=== PATIENT | male | born 1945 | race African-American/Black ===

== ENCOUNTER 2017-09-29 08:00 | Emergency (ER) | payer MEDICARE ==
--- NOTE | 2017-09-29 09:08 | RAD ---
CHEST 2 VIEWS: Date: 09/29/17 HISTORY: Cough. COMPARISON: Chest 1 view dated 07/27/15. FINDINGS: Heart size is enlarged. Mild pulmonary venous congestion and early edema. No pneumothorax. No large e ffusion. IMPRESSION: Cardiomegaly with new edema and pulmonary venous congestion. POS: [facility]
== END 2017-09-29 08:45 | disposition home or self-care (01) ==
LOC: MADERS 08:00
DX: M62.838 Other muscle spasm (principal); I50.9 Heart failure, unspecified; Z79.899 Other long term (current) drug therapy
CPT/HCPCS: 71046

== ENCOUNTER 2018-05-14 02:21 | Emergency (ER) | payer MEDICARE ==
[2018-05-14 03:50] LABS: ALT (SGPT) 15 U/L (8-55); AST (SGOT) 23 U/L (5-34); Alkaline Phosphatase 102 U/L (40-150); Anion Gap 16 mmol/L (10-20); BUN (Urea Nitrogen) 26 mg/dL (8.4-25.7); Bilirubin, Total 1.5 mg/dL (0.2-1.2); Calc. Creatinine Clearance 0 mL/min (70-130); Calcium 9.5 mg/dL (7.8-10.44); Carbon Dioxide 34 mmol/L (23-31); Chloride 93 mmol/L (98-107); Estimated GFR-MDRD 46; Glucose 99 mg/dL (83-110); Protein, Total 7.7 g/dL (5.8-8.1); Sodium 140 mmol/L (136-145)
[2018-05-14 04:02] LABS: Hemoglobin 12.7 g/dL (14.0-18.0); Mean Corpuscular HGB CONC 31.9 g/dL (32.0-36.0); Mean Corpuscular Hemoglobin 24.9 pg (27.0-31.0); Mean Corpuscular Volume 78.3 fL (78.0-98.0); Mean Platelet Volume 9.1 fL (7.4-10.4); Platelet Count 184 thou/uL (130-400); RBC Distribution Width 14.6 % (11.5-14.5); White Blood Cell (WBC) Count 6.4 thou/uL (4.8-10.8)
[2018-05-14 04:03] LABS: Potassium 2.6 mmol/L (3.5-5.1)
[2018-05-14 04:04] LABS: Band 12 % (5-11); Lymphocytes 37 % (21-51); Monocytes 2 % (0-10)
[2018-05-14 04:16] LABS: Albumin 4.1 g/dL (3.4-4.8); Globulin 3.6 g/dL (2.4-3.5)
[2018-05-14] MEDS ORDERED: Furosemide 40 MG/4 ML VIAL ONE (04:27)
[2018-05-14] MEDS ORDERED: Nitroglycerin 0.4 MG TAB (25 Tab Bottle) ONE (04:27)
[2018-05-14] MEDS ORDERED: Furosemide 20 MG/2 ML VIAL ONE (04:27)
[2018-05-14] MEDS ORDERED: Potassium Chloride 20 MEQ TAB ONE (04:27)
[2018-05-14] MEDS ORDERED: Nitroglycerin 2% Ointment 1 INCH/1 GM Packet ONE (04:27)
--- NOTE | 2018-05-14 08:19 | RAD ---
PORTABLE CHEST ONE VIEW: 05/14/2018 2:36 a.m. HISTORY: Dyspnea. FINDINGS: The heart is enlarged. The lungs are expanded with pulmonary vascular congestion. No pneumothoraces , lobar consolidation, or large effusions are identified. Small effusions cannot be excluded. POS: [facility]
== END 2018-05-14 04:50 | disposition short-term general hospital (02) ==
LOC: MADERS 02:21
DX: I11.0 Hypertensive heart disease with heart failure (principal); I50.9 Heart failure, unspecified; K21.9 Gastro-esophageal reflux disease without esophagitis; Z79.899 Other long term (current) drug therapy
CPT/HCPCS: 36415; 71045; 80053; 83880; 84484; 85025; 93005; 96374; J1940

== ENCOUNTER 2018-07-28 09:06 | Emergency (ER) | payer MEDICARE ==
[2018-07-28] MEDS ORDERED: Ibuprofen 600 MG TAB ONE (09:43)
[2018-07-28] MEDS ORDERED: predniSONE 20 MG TAB ONE (09:43)
[2018-07-28] MEDS ORDERED: Ondansetron ODT 4 MG TAB ONE (11:36)
== END 2018-07-28 09:50 | disposition home or self-care (01) ==
LOC: MADERS 09:06
DX: M10.9 Gout, unspecified (principal); K21.9 Gastro-esophageal reflux disease without esophagitis; I10 Essential (primary) hypertension; E78.5 Hyperlipidemia, unspecified; Z79.899 Other long term (current) drug therapy; Z79.82 Long term (current) use of aspirin
CPT/HCPCS: J7506; Q0162

== ENCOUNTER 2019-02-08 16:20 | Emergency (ER) | payer MEDICARE ==
[~2019-02-08 16:20] MED LIST: Sterile Water Irrigation 250 ML BOT ONE
== END 2019-02-08 17:49 | disposition home or self-care (01) ==
LOC: MADERS 16:20
DX: H61.22 Impacted cerumen, left ear (principal); I11.0 Hypertensive heart disease with heart failure; I50.9 Heart failure, unspecified; K21.9 Gastro-esophageal reflux disease without esophagitis; Z79.899 Other long term (current) drug therapy
CPT/HCPCS: 69210

== ENCOUNTER 2019-09-21 16:35 | Emergency (ER) | payer MEDICARE ==
[2019-09-21] MEDS ORDERED: predniSONE 20 MG TAB ONE (17:54)
[2019-09-21] MEDS ORDERED: Morphine 4 MG/ML VIAL ONE (17:54)
== END 2019-09-21 18:10 | disposition home or self-care (01) ==
LOC: MADERS 16:35
DX: M25.532 Pain in left wrist (principal); I11.0 Hypertensive heart disease with heart failure; I50.9 Heart failure, unspecified; E78.5 Hyperlipidemia, unspecified; M10.9 Gout, unspecified; J44.9 Chronic obstructive pulmonary disease, unspecified; K21.9 Gastro-esophageal reflux disease without esophagitis
CPT/HCPCS: 96372; 99283; J2270; J7512

== ENCOUNTER 2019-10-16 06:34 | Emergency (ER) | payer MEDICARE ==
[2019-10-16 07:55] LABS: Anisocytosis SLIGHT = 6-15 cells (100X) (0-5/hpf); Band 1 % (5-11); Elliptocytes SLIGHT = 2-5 cells (100X) (0-1/hpf); Eosinophils 2 % (0-10); Hemoglobin 12.8 g/dL (14.0-18.0); Lymphocytes 13 % (21-51); MDiff Complete? YES; Mean Corpuscular HGB CONC 29.2 g/dL (32.0-36.0); Mean Corpuscular Hemoglobin 25.2 pg (27.0-31.0); Mean Corpuscular Volume 86.3 fL (78.0-98.0); Mean Platelet Volume 8.5 fL (7.4-10.4); Monocytes 6 % (0-10); Neutrophil 78 % (42-75); Platelet Count 273 thou/uL (130-400); Poikilocytosis SLIGHT = 6-15 cells (100X) (0-5/hpf); RBC Distribution Width 15.6 % (11.5-14.5); Red Blood Cell (RBC) Count 5.07 mill/uL (4.70-6.10); White Blood Cell (WBC) Count 8.9 thou/uL (4.8-10.8)
[2019-10-16 07:56] LABS: ALT (SGPT) 27 U/L (8-55); AST (SGOT) 26 U/L (5-34); Albumin 3.8 g/dL (3.4-4.8); Alkaline Phosphatase 144 U/L (40-110); Anion Gap 20 mmol/L (10-20); BUN (Urea Nitrogen) 55 mg/dL (8.4-25.7); Bilirubin, Total 1.4 mg/dL (0.2-1.2); Calc. Creatinine Clearance 0 mL/min (70-130); Calcium 9.4 mg/dL (7.8-10.44); Carbon Dioxide 27 mmol/L (23-31); Chloride 101 mmol/L (98-107); Estimated GFR-MDRD 24; Globulin 3.4 g/dL (2.4-3.5); Glucose 91 mg/dL (83-110); Lipase 7 U/L (8-78); Potassium 3.8 mmol/L (3.5-5.1); Protein, Total 7.2 g/dL (5.8-8.1); Sodium 144 mmol/L (136-145)
[2019-10-16] MEDS ORDERED: Pantoprazole 40 MG VIAL ONE (08:03)
[2019-10-16] MEDS ORDERED: Nitroglycerin 2% Ointment 1 INCH/1 GM Packet ONE (08:03)
[2019-10-16] MEDS ORDERED: Aspirin 325 MG TAB ONE (08:03)
[2019-10-16 08:04] LABS: Bilirubin Small (Negative); Blood, Urine Negative (Negative); Clarity Clear (Clear); Glucose, Urine (Dipstick) Negative (Negative); Leukocyte Negative (Negative); Nitrite Negative (Negative); Protein, Urine (Dipstick) 100 mg/dL (Neg-Trace); Urobilinogen 0.2 mg/dL (Less than 2)
[2019-10-16 08:09] LABS: Bacteria/HPF Rare-Few HPF (None Seen); Mucous/LPF 1+ LPF (<2+); RBC/HPF 0-3 HPF (0-3); Squamous Epithelial 0-3 HPF (0-3); WBC/HPF 0-3 HPF (0-3)
[2019-10-16 08:13] LABS: CKMB 5.7 ng/mL (0-6.6)
--- NOTE | 2019-10-16 08:43 | CT ---
CT Abdomen Pelvis WO Con: 10/16/2019 7:59 AM HISTORY: Abdominal pain COMPARISON: None. TECHNIQUE: Multiple contiguous axial images were obtained and a CT of the abdomen and pelvis without IV contrast . Coronal and sagittal reformats were performed. FINDINGS: This examination is limited for the evaluation of solid organs and vascular structures due to the lac k of intravenous contrast. Lower Chest: Small right pleural effusion. Abdomen: Liver: Scattered calcified granulomas. Bile Ducts: Normal caliber. Gallbladder: No calcified gallstones. Fluid is seen surrounding the gallbladder and adjacent to the l iver. Pancreas: within normal limits. Spleen: Scattered calcified granulomas. Adrenals: within normal limits. Kidneys: within normal limits. Pelvis: Reproductive Organs: No pelvic masses. Ureters: within normal limits. Bladder: within normal limits. Bowel: Normal caliber. Mesenteric Lymph Nodes: No enlarged mesenteric lymph nodes. Peritoneum: No ascites or free air, no fluid collection. Vessels: Atherosclerotic calcifications in the aorta Retroperitoneum: within normal limits. Abdominal Wall: Fluid is seen in the right inguinal canal. Bones: Degenerative changes in the spine. IMPRESSION: 1. Small ascites 2. Small amount of fluid surrounding the gallbladder may be secondary to the ascites. Acute cholecyst itis cannot be excluded. Right upper quadrant abdominal ultrasound is recommended. 3. Small right pleural effusion
== END 2019-10-16 09:27 | disposition left against medical advice (07) ==
LOC: MADERS 06:34
DX: K81.9 Cholecystitis, unspecified (principal); I11.0 Hypertensive heart disease with heart failure; I50.9 Heart failure, unspecified; R79.89 Other specified abnormal findings of blood chemistry; I48.91 Unspecified atrial fibrillation; I45.9 Conduction disorder, unspecified; E78.5 Hyperlipidemia, unspecified; J44.9 Chronic obstructive pulmonary disease, unspecified; K21.9 Gastro-esophageal reflux disease without esophagitis; M10.9 Gout, unspecified; Z79.82 Long term (current) use of aspirin; Z79.01 Long term (current) use of anticoagulants; Z79.899 Other long term (current) drug therapy
CPT/HCPCS: 36415; 74176; 80053; 81003; 81015; 82553; 83605; 83690; 84484; 85025; 93005; 96374; C9113

== ENCOUNTER 2020-07-18 18:07 | Emergency (ER) | payer MEDICARE ==
[2020-07-18 19:22] LABS: Bilirubin Negative (Negative); Blood, Urine Moderate (Negative); Clarity Clear (Clear); Glucose, Urine (Dipstick) Negative (Negative); Ketone, Urine Negative (Negative); Leukocyte Negative (Negative); Nitrite Negative (Negative); Protein, Urine (Dipstick) 30 mg/dL (Neg-Trace)
[2020-07-18 19:22] LABS: #Basophils 0.2 thou/uL (0.0-0.2); #Eosinphils 0.1 thou/uL (0.0-0.7); #Lymphocytes 1.1 thou/uL (1.20-3.40); #Monocytes 0.7 thou/uL (0.11-0.59); #Neutrophils 5.9 thou/uL (1.40-6.50); %Basophils 2.9 % (0.0-1.0); %Eosinophils 1.1 % (0.0-10.0); %Lymphocytes 13.2 % (21.0-51.0); %Monocytes 8.6 % (0.0-10.0); %Neutrophils 74.2 % (42.0-75.0); Hemoglobin 12.4 g/dL (14.0-18.0); Mean Corpuscular HGB CONC 30.8 g/dL (32.0-36.0); Mean Corpuscular Hemoglobin 26.4 pg (27.0-31.0); Mean Corpuscular Volume 85.9 fL (78.0-98.0); Mean Platelet Volume 9.4 fL (7.4-10.4); Platelet Count 140 thou/uL (130-400); RBC Distribution Width 16.7 % (11.5-14.5); Red Blood Cell (RBC) Count 4.68 mill/uL (4.70-6.10)
[2020-07-18 19:28] LABS: Bacteria/HPF Rare-Few HPF (None Seen); RBC/HPF 0-3 HPF (0-3); Squamous Epithelial 0-3 HPF (0-3); WBC/HPF 0-3 HPF (0-3)
[2020-07-18 19:40] LABS: ALT (SGPT) 16 U/L (8-55); AST (SGOT) 54 U/L (5-34); Albumin 3.5 g/dL (3.4-4.8); Alkaline Phosphatase 86 U/L (40-110); Anion Gap 16 mmol/L (10-20); BUN (Urea Nitrogen) 42 mg/dL (8.4-25.7); Calc. Creatinine Clearance 0 mL/min (70-130); Carbon Dioxide 36 mmol/L (23-31); Chloride 99 mmol/L (98-107); Estimated GFR-MDRD 38; Glucose 112 mg/dL (83-110); Protein, Total 6.5 g/dL (5.8-8.1); Sodium 147 mmol/L (136-145)
[2020-07-18 19:58] LABS: CKMB 5.9 ng/mL (0-6.6)
--- NOTE | 2020-07-18 20:00 | RAD ---
AP CHEST: 07/18/20 HISTORY: Dizziness. COMPARISON: 05/16/18. Cardiomegaly. Transvenous pacemaker leads have been placed since the prior exam. No evidence of vascu lar congestion or infiltrate. I cannot exclude small effusions. IMPRESSION: Cardiomegaly. No evidence of focal infiltrate. Small effusions not excluded. POS: [facility]
[2020-07-18] MEDS ORDERED: Aspirin Chewable 81 MG TAB ONE (20:11)
--- NOTE | 2020-07-18 20:42 | CT ---
CT HEAD WITHOUT CONTRAST: 07/18/20 INDICATIONS: Fall with dizziness. No comparison. FINDINGS: Ventricles have normal size and position. Moderate chronic ischemic white matter changes. No evidenc e of intracranial hemorrhage. No mass or edema. No evidence of acute infarct. Sinuses appear clear. IMPRESSION: No acute abnormality. POS: [facility]
[2020-07-18] MEDS ORDERED: Furosemide 40 MG TAB ONE (21:12)
[2020-07-18] MEDS ORDERED: Nitroglycerin 0.4 MG TAB 1 EACH ONE (21:12)
== END 2020-07-18 21:48 | disposition home or self-care (01) ==
LOC: MADERS 18:07
DX: R55 Syncope and collapse (principal); I11.0 Hypertensive heart disease with heart failure; I50.9 Heart failure, unspecified; I48.91 Unspecified atrial fibrillation; K21.9 Gastro-esophageal reflux disease without esophagitis; E78.5 Hyperlipidemia, unspecified; M10.9 Gout, unspecified; J44.9 Chronic obstructive pulmonary disease, unspecified; Z79.82 Long term (current) use of aspirin; Z79.899 Other long term (current) drug therapy; Z86.73 Personal history of transient ischemic attack (TIA), and cerebral infarction without residual deficits
CPT/HCPCS: 36415; 70450; 71045; 80053; 81003; 81015; 82553; 83880; 84484; 85025; 93005

== ENCOUNTER 2020-08-04 07:08 | Emergency (ER) | payer MEDICARE ==
--- NOTE | 2020-08-04 08:07 | CT ---
EXAM: CT Lower Ext Rt WO Con DATE: 08/04/2020 7:26 AM INDICATION: Right thigh mass COMPARISON: None. FINDING: There is enlargement of the right rectus femoris muscle with areas of internal increased CT density and surrounding inflammatory stranding suspicious for a large intramuscular hematoma. This measures 4.3 x 23.3 cm in its greatest AP and craniocaudad dimensions respectively. There is extensiv e lymphedema of the soft tissues of the right thigh. There are moderate vascular calcifications seen involving the visualized vasculature. No pathologically enlarged lymph nodes are evident. No acu te fracture or subluxation demonstrated. IMPRESSION:Enlargement with internal increased CT density within the right rectus femoris musculature suspicious for large intramuscular hematoma. Recommend clinical and sonographic follow-up to document resolution. If the intramuscular hematomas does not resolve within 6 weeks, a follow-up MRI of the right thigh with and without contrast is recommended to exclude presence of underlying soft tissue mass.
== END 2020-08-04 08:50 | disposition home or self-care (01) ==
LOC: MADERS 07:08
DX: S70.11XA Contusion of right thigh, initial encounter (principal); I11.0 Hypertensive heart disease with heart failure; I50.9 Heart failure, unspecified; I48.91 Unspecified atrial fibrillation; M10.9 Gout, unspecified; K21.9 Gastro-esophageal reflux disease without esophagitis; J44.9 Chronic obstructive pulmonary disease, unspecified; E78.5 Hyperlipidemia, unspecified; Z79.82 Long term (current) use of aspirin; Z79.899 Other long term (current) drug therapy; Z79.01 Long term (current) use of anticoagulants; W17.89XA Other fall from one level to another, initial encounter

== ENCOUNTER 2020-09-16 02:31 | Emergency (ER) | payer MEDICARE ==
--- NOTE | 2020-09-16 08:12 | CT ---
PRELIMINARY REPORT/[facility]/EMERGENCY AFTER HOURS PROCEDURE EXAM: CT BRAIN WO CON HISTORY: LEFT ARM WEAKNESS X2 DAYS COMPARISON: None FINDINGS: No focal parenchymal hypodensity to suggest acute ischemia or cerebral edema. Periventricular white matter hypodensities bilaterally. Focal encephalomalacic change within the left frontal lobe. Chronic lacunar infarct versus prominent Virchow-Clovis space within the right basal ganglia. No intracranial hemorrhage. No hydrocephalus, midline shift or mass-effect. No extra-axial fluid collections. Mild mucosal lobular thickening within the right maxillary sinus. Otherwise, the remaining paranasal sinuses and mastoids are clear. Contents of the orbits are symmetric across the midline. Calvarium is intact. No focal scalp swelling. IMPRESSION: No acute intracranial pathology. 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 Chronic ischemic microvascular white matter disease. Minimal right maxillary mucosal sinus disease. ELECTRONICALLY SIGNED BY: Elmer White MD Sep 16, 2020 3:27:34 AM PHARMACEUTICAL SALESPERSON This report is intended for review by the ordering physician only, in accordance of law. If you recei ve this report in error, please call [facility] at [phone]. FINAL REPORT Exam: Head CT without contrast HISTORY: Left arm weakness x2 days. Improving symptoms. COMPARISON: 07/18/2020 FINDINGS: Hemorrhage: No intraparenchymal hemorrhage or extra-axial hematoma. Brain parenchyma: Cortical tate-white matter differentiation is preserved. No mass effect or midline shift. Basilar cisterns are patent.Stable hypodensities due to chronic small vessel ischemic changes of white matter. Stable remote lacunar infarcts involving the right lentiform nucleus and lat eral left caudate nucleus. Ventricular system: Ventricles and sulci are patent and symmetric. Calvarium: Intact. Sinuses and mastoid air cells: Adequate aeration. Minimal right maxillary sinus disease. IMPRESSION: 1. This report is in agreement with initial report by [facility]. 2. No acute intracranial process. Transcribed Date/Time: 09/16/2020 8:51 AM
== END 2020-09-16 03:59 | disposition home or self-care (01) ==
LOC: MADERS 02:31
DX: R53.1 Weakness (principal); K21.9 Gastro-esophageal reflux disease without esophagitis; E78.5 Hyperlipidemia, unspecified; J44.9 Chronic obstructive pulmonary disease, unspecified; I11.0 Hypertensive heart disease with heart failure; I45.9 Conduction disorder, unspecified; M10.9 Gout, unspecified; Z79.01 Long term (current) use of anticoagulants; Z79.899 Other long term (current) drug therapy; Z79.82 Long term (current) use of aspirin
CPT/HCPCS: 70450

== ENCOUNTER 2020-10-13 17:52 | Emergency (ER) | payer MEDICARE ==
[~2020-10-13 17:52] MED LIST changes: +EPINEPHrine 1 MG/10 ML Abboject SYRINGE ONE; +Sodium Bicarb 50 MEQ/50 ML Abboject 8.4% SYRINGE ONE; -Sterile Water Irrigation 250 ML BOT ONE
== END 2020-10-13 20:32 | disposition expired ==
LOC: MADERS 17:52
DX: I46.9 Cardiac arrest, cause unspecified (principal); K21.9 Gastro-esophageal reflux disease without esophagitis; I11.0 Hypertensive heart disease with heart failure; I50.9 Heart failure, unspecified; M10.9 Gout, unspecified; J44.9 Chronic obstructive pulmonary disease, unspecified; Z79.01 Long term (current) use of anticoagulants; Z79.899 Other long term (current) drug therapy
CPT/HCPCS: 36416; 92950; 96374; 96375; J0171